=== PATIENT | male | born 1955 | race Hispanic/Latino ===

== ENCOUNTER 2018-03-02 20:30 | Inpatient (IN) | payer MEDICAID ==
[2018-03-02 20:35] VITALS: BMI 27.1
[2018-03-02] MEDS ORDERED: Sodium Chloride 0.9% 1,000 ML IV SCH (21:00)
[2018-03-02 21:05] LABS: BASO # 0.07 K/mm3 (0.0-2.0); BASO % 0.5 % (0.0-3.0); EOS # 0.1 (0.0-0.7); EOS % 0.8 % (1.5-5.0); GRAN # 10.86 (1.4-6.5); GRAN % 78.3 % (50.0-68.0); HEMOGLOBIN 8.7 g/dL (14.0-18.0); LYMPH # 2.3 (1.2-3.4); LYMPH % 16.4 % (22.0-35.0); MEAN CELL VOLUME 85.8 fl (80.0-105.0); MEAN CORPUSCULAR HEMOGLOBIN 28.8 pg (25.0-35.0); MEAN CORPUSCULAR HGB CONC 33.6 g/dl (31.0-37.0); MEAN PLATELET VOLUME 9.4 fl (7.0-11.0); MONO # 0.6 (0.1-0.6); RBC 3.02 10^6/uL (3.5-6.1); RED CELL DISTRIBUTION WIDTH 13.5 % (11.5-14.5); WHITE BLOOD COUNT 13.9 10^3/ul (4.5-11.0)
[2018-03-02 21:17] LABS: ALB/GLOB RATIO 1.4 (1.1-1.8); ALBUMIN 3.3 g/dL (3.0-4.8); ALT/SGPT 25 U/L (7-56); AMYLASE 37 U/L (35-125); AST/SGOT 17 U/L (17-59); BLOOD UREA NITROGEN 38 mg/dL (7-21); CALCIUM 8.6 mg/dL (8.4-10.5); GFR AFRICAN-AMERICAN > 60; GFR NON-AFRICAN AMERICAN > 60; LIPASE 44 U/L (23-300)
[2018-03-02 21:21] LABS: INR 1.2 (0.93-1.08); PARTIAL THROMBOPLASTIN TIME 24.8 Seconds (25.1-36.5); PROTHROMBIN TIME 13.7 SECONDS (9.4-12.5)
[2018-03-02 21:26] LABS: TROPONIN I < 0.01 ng/mL
--- NOTE | 2018-03-02 21:40 | ED PDOC ---
Arrival/HPI - General Chief Complaint: Dizziness/Lightheaded Time Seen by Provider: 03/02/18 20:33 Historian: Patient - History of Present Illness Narrative History of Present Illness (Text): 03/02/18 20:45 Jennifer Delaney is a 62 year old male who presents to the Emergency department complaining of generalized weakness. Patient reports associated dizziness and black stools since yesterday. Patient notes he takes aspirin daily. Patient denies any fever, chills, chest pain, shortness of breath, nausea, vomiting, diarrhea, urinary symptoms, back pain, neck pain, headache, vision changes, or any other complaints. Time/Duration: 24 hours Symptom Onset: Gradual Symptom Course: Unchanged Activities at Onset: Light Context: Home Past Medical History - Provider Review Nursing Documentation Reviewed: Yes - Psychiatric Hx Substance Use: No Family/Social History - Physician Review Nursing Documentation Reviewed: Yes Family/Social History: Unknown Family HX Smoking Status: Current Some Days Smoker Hx Alcohol Use: Yes Frequency of alcohol use: Socially Hx Substance Use: No Allergies/Home Meds Allergies/Adverse Reactions: Allergies No Known Allergies Allergy (Verified 03/02/18 20:35) Home Medications: Home Meds Medication Instructions Recorded Confirmed Aspirin [Aspirin EC] 325 mg PO DAILY 03/02/18 03/02/18 Review of Systems - Physician Review All systems were reviewed & negative as marked: Yes - Review of Systems Constitutional: Other (+generalized weakness). absent: Fevers Eyes: Normal ENT: Normal Respiratory: Normal. absent: SOB, Cough Cardiovascular: Normal. absent: Chest Pain Gastrointestinal: Stool Changes (+black stools). absent: Diarrhea, Vomiting Genitourinary Male: Normal. absent: Dysuria, Frequency, Hematuria, Urinary Output Changes Musculoskeletal: Normal. absent: Back Pain, Neck Pain Skin: Normal. absent: Rash Neurological: Dizziness. absent: Headache Endocrine: Normal Hemo/Lymphatic: Normal Psychiatric: Normal Physical Exam Vital Signs Reviewed: Yes Vital Signs Temp Pulse Resp BP Pulse Ox 03/03/18 01:05 98.2 F 83 18 117/52 L 03/03/18 00:40 99.2 F 89 16 142/75 03/02/18 23:47 99.2 F 91 H 18 146/82 03/02/18 23:37 98.4 F 98 H 20 148/78 03/02/18 23:02 98.0 F 90 18 134/75 03/02/18 22:47 98 F 86 20 133/71 03/02/18 20:31 98 F 93 H 18 140/74 99 Temperature: Afebrile Blood Pressure: Normal Pulse: Regular Respiratory Rate: Normal Appearance: Positive for: Well-Appearing, Non-Toxic, Comfortable Pain Distress: None Mental Status: Positive for: Alert and Oriented X 3 - Systems Exam Head: Present: Atraumatic, Normocephalic Pupils: Present: PERRL Extroacular Muscles: Present: EOMI Conjunctiva: Present: Normal Mouth: Present: Moist Mucous Membranes Neck: Present: Normal Range of Motion Respiratory/Chest: Present: Clear to Auscultation, Good Air Exchange. No: Respiratory Distress, Accessory Muscle Use Cardiovascular: Present: Regular Rate and Rhythm, Normal S1, S2. No: Murmurs Abdomen: No: Tenderness, Distention, Peritoneal Signs Back: Present: Normal Inspection Upper Extremity: Present: Normal Inspection. No: Cyanosis, Edema Lower Extremity: Present: Normal Inspection. No: Edema Neurological: Present: GCS=15, CN II-XII Intact, Speech Normal Skin: Present: Warm, Dry, Normal Color. No: Rashes Psychiatric: Present: Alert, Oriented x 3, Normal Insight, Normal Concentration Medical Decision Making ED Course and Treatment: 03/02/18 20:45 Impression: 62 year old male complaining of dizziness, generalized weakness, and black stools since yesterday. Plan: -- EKG -- Chest X-ray -- Labs, blood type and screen, cardiac enzymes, amylase, lipase -- IV fluids -- Protonix -- Reassess and disposition Progress Notes: Reviewed EKG, NSR at 88 bpm. Non-specific ST/T wave changes. 03/02/18 21:20 Chest X-ray reviewed, shows no acute processes. 03/02/18 21:46 Case discussed with medical record specialist garment alteration examiner, who is aware and agrees with plan. 03/02/18 21:[address] Velasquez, who is aware and agrees with plan. Accepts pt in to hospitalist service. Pt will be admitted to Telemetry for GI bleed. - Lab Interpretations Lab Results: 03/02/18 20:49 03/02/18 20:49 Lab Results 03/02/18 21:06: Blood Type O POSITIVE, Antibody Screen Negative, Crossmatch See Detail, BBK History Checked No verified bt 03/02/18 21:00: Blood Type Confirm O POSITIVE 03/02/18 20:49: TSH 3rd Generation 1.47, Alcohol, Quantitative < 10 03/02/18 20:49: Ferritin 71.1, Vitamin B12 255, Folate 6.3 03/02/18 20:49: Iron 156, TIBC 318, % Saturation 49 03/02/18 20:49: Differential Comment See pathology report, Retic Count 1.76 H 03/02/18 20:49: Sodium 139, Potassium 3.9, Chloride 104, Carbon Dioxide 27, Anion Gap 12, BUN 38 H, Creatinine 0.9, Est GFR ( Amer) > 60, Est GFR ( Non-Af Amer) > 60, Random Glucose 166 H, Calcium 8.6, Total Bilirubin 0.1 L, AST 17, ALT 25, Alkaline Phosphatase 43, Lactate Dehydrogenase 269 L, Total Creatine Kinase 33 L, Troponin I < 0.01, Total Protein 5.7 L, Albumin 3.3, Globulin 2.4, Albumin/Globulin Ratio 1.4, Amylase 37, Lipase 44 03/02/18 20:49: PT 13.7 H, INR 1.20 H, APTT 24.8 L 03/02/18 20:49: WBC 13.9 H, RBC 3.02 L, Hgb 8.7 L, Hct 25.9 L, MCV 85.8, MCH 28.8, MCHC 33.6, RDW 13.5, Plt Count 262, MPV 9.4, Gran % 78.3 H, Lymph % (Auto ) 16.4 L, [place] % (Auto) 4.0, Eos % (Auto) 0.8 L, Baso % (Auto) 0.5, Gran # 10.86 H, Lymph # (Auto) 2.3, [place] # (Auto) 0.6, Eos # (Auto) 0.1, Baso # (Auto) 0.07 I have reviewed the lab results: Yes - RAD Interpretation Radiology Orders: 03/02/18 20:48 CHEST PORTABLE [RAD] Stat Rope Laying Machine Operator: ED Physician - EKG Interpretation Interpreted by ED Physician: Yes Type: 12 lead EKG - Medication Orders Current Medication Orders: Pantoprazole Sodium (Protonix 40mg Ivpb) 40 mg in 100 mls @ 20 mls/hr IVPB .Q5H [facility] Last Admin: 03/04/18 03:30 Dose: 20 mls/hr eMAR Start Stop Document 03/04/18 03:30 KOPPS (Rec: 03/04/18 03:30 KOPPS [id number]) Intravenous Solution Start Date 03/04/18 Start Time 03:30 Sodium Chloride (Sodium Chloride 0.9%) 1,000 mls @ 100 mls/hr IV .Q10H [facility] Last Admin: 03/04/18 04:01 Dose: Discontinued Medications Sodium Chloride (Sodium Chloride 0.9%) 1,000 mls @ 80 mls/hr IV .[id number] [facility] Last Admin: 03/02/18 20:58 Dose: 80 mls/hr eMAR Start Stop Document 03/02/18 20:58 RG (Rec: 03/02/18 20:58 RG [id number]) Intravenous Solution Start Date 03/02/18 Start Time 20:58 Sodium Chloride (Sodium Chloride 0.9%) 1,000 mls @ 125 mls/hr IV .Q8H [facility] Last Admin: 03/03/18 05:28 Dose: Sodium Chloride (Sodium Chloride 0.9%) 1,000 mls @ 100 mls/hr IV .Q10H [facility] Pantoprazole Sodium (Protonix Inj) 40 mg IVP ONCE STA Stop: 03/02/18 20:50 Last Admin: 03/02/18 20:54 Dose: 40 mg IVP Administration Document 03/02/18 20:54 RG (Rec: 03/02/18 20:56 RG [id number]) Charges for Administration # of IVP Administrations 1 Pantoprazole Sodium (Protonix Inj) 40 mg IVP STAT STA Stop: 03/03/18 01:49 Last Admin: 03/03/18 02:33 Dose: 40 mg IVP Administration Document 03/03/18 02:33 ST (Rec: 03/03/18 02:33 ST [id number]) Charges for Administration # of IVP Administrations 1 - Scribe Statement The provider has reviewed the documentation as recorded by the Scribdavid Bautista Provider Scribe Attestation: All medical record entries made by the Scribe were at my direction and personally dictated by me. I have reviewed the chart and agree that the record accurately reflects my personal performance of the history, physical exam, medical decision making, and the department course for this patient. I have also personally directed, reviewed, and agree with the discharge instructions and disposition. Disposition/Present on Arrival - Present on Arrival Any Indicators Present on Arrival: No History of DVT/PE: No History of Uncontrolled Diabetes: No Urinary Catheter: No History of Decub. Ulcer: No History Surgical Site Infection Following: None - Disposition Have Diagnosis and Disposition been Completed?: Yes Diagnosis: Gastrointestinal bleeding Disposition: HOSPITALIZED Disposition Time: 22:00 Condition: FAIR
--- NOTE | 2018-03-02 22:50 | CP.PCM.HP ---
History of Present Illness - History of Present Illness History of Present Illness: Joan Reza, PGY1, H&P for Dr Velasquez: CC: dizziness, black tarry stools for past 3 days 62 year old male with no significant PMH, presents for dizziness and fatigue for past 2-3 days. Pt state that he started having black tarry stools, 2 formed stools/day, for past 2-3 days. Denies nausea, vomiting, hematemesis, cp, palpitations, sob, syncope, LOC, diarrhea, constipation, hematochezia, hematuria , urinary symptoms, leg swelling. Pt reports decreased appetite. No prior such episodes before. Pt states that he had mild congestion for past few days and has been taking Mucinex and ASA 325 mg. Otherwise, denies chronic NSAID use, history of GERD, dyspepsia, constipation. No prior EGD. Prior colonoscopy 3 years ago, which showed polyps. Pt is due for a colonoscopy next year. In ED, pt HR in 90s, other vitals stable. Hgb 8.7, wbc 13.9, BUN 38, Cr 0.9, LDH 269, norml amylase/lipase. Given Protonix 40 IV and started on IVF. Pt being transfused 2 units prbcs as per ED. 12 point ROS obtained and negative, except as per HPI. PMD: [facility]: in [facility] (does not remember name) PMH: denies PSH: denies NKA FH: denies SH: drinks ETOH socially - whiskey or wine. some days smoker - 5-6 ciggs/day for 25 years. Home meds: denies Present on Admission - Present on Admission Any Indicators Present on Admission: No History of DVT/PE: No History of Uncontrolled Diabetes: No Urinary Catheter: No Decubitus Ulcer Present: No Review of Systems - Review of Systems All systems: reviewed and no additional remarkable complaints except Review of Systems: as per HPI Past Patient History - Past Social History Smoking Status: Current Some Days Smoker - PSYCHIATRIC Hx Substance Use: No Meds Allergies/Adverse Reactions: Allergies Allergy/AdvReac Type Severity Reaction Status Date / Time No Known Allergies Allergy Verified 03/02/18 20:35 Physical Exam - Constitutional Appears: Non-toxic, No Acute Distress - Head Exam Head Exam: ATRAUMATIC, NORMOCEPHALIC - Eye Exam Eye Exam: EOMI, PERRL. absent: Conjunctival injection, Nystagmus, Scleral icterus Pupil Exam: NORMAL ACCOMODATION, PERRL. absent: Fixed, Irregular, Unequal Additional comments: mild conjunctival pallor - ENT Exam ENT Exam: Mucous Membranes Moist - Neck Exam Neck exam: Positive for: Full Rom - Respiratory Exam Respiratory Exam: Clear to Auscultation Bilateral, NORMAL BREATHING PATTERN. absent: Accessory Muscle Use, Rhonchi, Wheezes, Stridor - Cardiovascular Exam Cardiovascular Exam: RRR, +S1, +S2. absent: Systolic Murmur - GI/Abdominal Exam GI & Abdominal Exam: Normal Bowel Sounds, Soft. absent: Distended, Firm, Guarding, Mass, Organomegaly, Rebound, Rigid, Tenderness - Rectal Exam Rectal Exam: Black Stool. absent: Hemorrhoids, Fecal Impaction Additional comments: Rectal exam showed black stool, + FOBT, normal anal sphincter tone. no hemorrhoids/anal fissure/mass appreciated. - Extremities Exam Extremities exam: Positive for: normal inspection. Negative for: calf tenderness, pedal edema - Back Exam Back exam: NORMAL INSPECTION - Neurological Exam Neurological exam: Alert, Oriented x3 - Psychiatric Exam Psychiatric exam: Normal Affect, Normal Mood - Skin Skin Exam: Dry, Pallor, Warm Results - Vital Signs Recent Vital Signs: Last Vital Signs Temp 98 F 03/02/18 22:47 Pulse 86 03/02/18 22:47 Resp 20 03/02/18 22:47 BP 133/71 03/02/18 22:47 Pulse Ox 99 03/02/18 20:31 - Labs Result Diagrams: 03/02/18 20:49 03/02/18 20:49 Assessment & Plan - Assessment and Plan (Free Text) Assessment: 62 year old male with no PMH, presents for dizziness, found to be anemic likely 2/2 upper GI bleed: Dizziness and generalized weakness: 2/2 anemia from upper GI bleed vs dehydration vs thyroid abnormalities - Hgb 8.7 - EKG, NSR at 88 bpm. Non-specific ST/T wave changes. - Chest X-ray reviewed, shows no acute processes. - Rectal exam showed black stool, + FOBT, normal anal sphincter tone. no hemorrhoids/anal fissure/mass appreciated. - NPO - Monitor Hgb q4h - F/u iron/anemia studies. Peripheral smear - NGT to low intermittent suction - Protonix 80 mg IV x1 given, then started on drip at 8 mg/hr - Gi consult. F/u recs. - Type and screen/crossmatch. Pt being transfused 2 units prbcs as per ED - Tele monitoring - IV access: 2 large bore IVs - NS @ 100 - Bed rest - Fall precautions - Cont to monitor - Avoid anticoag, NSAIDs, ASA, steroids PPX: protonix. SCDs Discussed with Dr Velasquez. - Date & Time Date: 03/03/18 Time: 01:24
[2018-03-03] MEDS ORDERED: Sodium Chloride 0.9% 1,000 ML IV SCH ×2 (00:33→00:37)
[2018-03-03] MEDS: Pantoprazole 40mg/100mL NS 40 MG/100 ML BAG IVPB SCH ×5 (02:33→21:53)
[2018-03-03 03:19] LABS: IRON 156 ug/dL (45-180)
[2018-03-03 03:28] LABS: % IRON SATURATION 49 % (20-55); TOTAL IRON BINDING CAPACITY 318 ug/dL (261-462)
--- NOTE | 2018-03-03 09:18 | RAD ---
HISTORY: GI BLEED COMPARISON: No prior. FINDINGS: LUNGS: No active pulmonary disease. PLEURA: No significant pleural effusion identified, no pneumothorax apparent. CARDIOVASCULAR: No radiographic findings to suggest acute or significant cardiovascular disease. OSSEOUS STRUCTURES: No significant abnormalities. VISUALIZED UPPER ABDOMEN: Normal. OTHER FINDINGS: None. IMPRESSION: No active disease.
[2018-03-03 10:12] LABS: BASO # 0.06 K/mm3 (0.0-2.0); BASO % 0.4 % (0.0-3.0); EOS # 0.2 (0.0-0.7); EOS % 1.4 % (1.5-5.0); GRAN # 10.13 (1.4-6.5); HEMOGLOBIN 9.3 g/dL (14.0-18.0); LYMPH # 3.3 (1.2-3.4); LYMPH % 22.3 % (22.0-35.0); MEAN CORPUSCULAR HEMOGLOBIN 29.7 pg (25.0-35.0); MEAN PLATELET VOLUME 9.3 fl (7.0-11.0); MONO % 6.9 % (1.0-6.0); RBC 3.13 10^6/uL (3.5-6.1); RED CELL DISTRIBUTION WIDTH 13.7 % (11.5-14.5); WHITE BLOOD COUNT 14.7 10^3/ul (4.5-11.0)
[2018-03-03 10:27] LABS: ALB/GLOB RATIO 1.3 (1.1-1.8); ALBUMIN 3.1 g/dL (3.0-4.8); ALT/SGPT 27 U/L (7-56); AST/SGOT 18 U/L (17-59); BLOOD UREA NITROGEN 25 mg/dL (7-21); CALCIUM 8.7 mg/dL (8.4-10.5); GFR AFRICAN-AMERICAN > 60; GFR NON-AFRICAN AMERICAN > 60
--- NOTE | 2018-03-03 11:21 | CARD ---
APPROVED REPORT EKG Measurement Heart [id number] <Conclusion> Normal sinus rhythm Nonspecific T wave abnormality Abnormal ECG
[2018-03-03 13:08] LABS: FERRITIN 71.1 ng/mL
--- NOTE | 2018-03-03 13:33 | CP.PCM.CON ---
<Brinda Ulloa - Last Filed: 03/03/18 13:33> History of Present Illness - History of Present Illness History of Present Illness: Seen and examined at the bedside earlier today, chart was reviewed. Request for GI consult is for GI bleed. HPI: This is a 62-year-old female with no significant past medical history complaining of black tarry stools for the past 2 days, he also complained of feeling dizziness and fatigue. The patient reported having tarry stools 2 on Thursday as well as an episode on Thursday. Denies any bright red blood. No complaint of nausea, vomiting, dyspepsia or abdominal pain. His is currently at the bedside and endorses that the patient is recently had a fever for flu. He denies any weight loss or loss of appetite. He normally has regular bowel movements daily and has never noticed any melena or bright red blood per rectum. On occasion he may take aspirin for headaches but not on a regular basis. He denies any chronic use of NSAIDs. Never had endoscopy, last colonoscopy was 3 years ago at [facility] with Dr. huggins on with a history of colon polyps. On admission he was found to have a hemoglobin of 8.7, he is status post 2 units of packed RBCs. Past medical history: As per HPI denies any cardiac, pulmonary, endocrine illnesses. Past surgical history denies Allergies: No known drug allergies Family history: Denies Social history: History of smoking, drinks alcohol socially usually on weekends about 2 drinks denies any illicit drugs Medications: Reviewed as per MAR ROS: Systems reviewed a positive findings see HPI. Past Patient History - Past Social History Smoking Status: Light Smoker < 10 Cigarettes Daily - CARDIAC Hx Cardiac Disorders: No - PULMONARY Hx Respiratory Disorders: No - NEUROLOGICAL Hx Neurological Disorder: No - HEENT Hx HEENT Problems: No - RENAL Hx Chronic Kidney Disease: No - ENDOCRINE/METABOLIC Hx Endocrine Disorders: No - HEMATOLOGICAL/ONCOLOGICAL Hx Blood Disorders: No - INTEGUMENTARY Hx Dermatological Problems: No - MUSCULOSKELETAL/RHEUMATOLOGICAL Hx Musculoskeletal Disorders: No Hx Falls: No - GASTROINTESTINAL Hx Gastrointestinal Disorders: No - GENITOURINARY/GYNECOLOGICAL Hx Genitourinary Disorders: No - PSYCHIATRIC Hx Psychophysiologic Disorder: No Meds Allergies/Adverse Reactions: Allergies Allergy/AdvReac Type Severity Reaction Status Date / Time No Known Allergies Allergy Verified 03/02/18 20:35 - Medications Medications: Current Medications Sodium Chloride (Sodium Chloride 0.9%) 1,000 mls @ 100 mls/hr IV .Q10H [facility] Pantoprazole Sodium (Protonix 40mg Ivpb) 40 mg in 100 mls @ 20 mls/hr IVPB .Q5H [facility] Last Admin: 03/03/18 11:56 Dose: 20 mls/hr Physical Exam - Constitutional Appears: No Acute Distress - Head Exam Head Exam: NORMOCEPHALIC - Eye Exam Eye Exam: Normal appearance. absent: Scleral icterus Pupil Exam: NORMAL ACCOMODATION - ENT Exam ENT Exam: Mucous Membranes Moist - Neck Exam Neck exam: Positive for: Normal Inspection - Respiratory Exam Respiratory Exam: NORMAL BREATHING PATTERN. absent: Respiratory Distress - Cardiovascular Exam Cardiovascular Exam: +S1, +S2 - GI/Abdominal Exam GI & Abdominal Exam: Normal Bowel Sounds, Soft. absent: Distended, Guarding, Rebound, Tenderness - Rectal Exam Rectal Exam: Black Stool Additional comments: no mass palpated - Extremities Exam Extremities exam: Positive for: pedal pulses present. Negative for: calf tenderness, pedal edema (5) - Neurological Exam Neurological exam: Alert, Oriented x3 - Skin Skin Exam: Dry, Warm Results - Vital Signs Recent Vital Signs: Last Vital Signs Temp 98.1 F 03/03/18 12:00 Pulse 86 03/03/18 12:00 Resp 20 03/03/18 12:00 BP 131/66 03/03/18 12:00 Pulse Ox 99 03/02/18 20:31 - Labs Result Diagrams: 03/03/18 10:00 03/03/18 10:00 Labs: Laboratory Results - last 24 hr 03/03/18 03/03/18 10:00 10:00 WBC 14.7 H RBC 3.13 L Hgb 9.3 L Hct 26.6 L MCV 85.0 MCH 29.7 MCHC 35.0 RDW 13.7 Plt Count 207 MPV 9.3 Gran % 69.0 H Lymph % (Auto) 22.3 [place] % (Auto) 6.9 H Eos % (Auto) 1.4 L Baso % (Auto) 0.4 Gran # 10.13 H Lymph # (Auto) 3.3 [place] # (Auto) 1.0 H Eos # (Auto) 0.2 Baso # (Auto) 0.06 Sodium 140 Potassium 4.0 Chloride 107 Carbon Dioxide 27 Anion Gap 11 BUN 25 H Creatinine 0.7 L Est GFR ( Amer) > 60 Est GFR (Non-Af Amer) > 60 Random Glucose 104 Calcium 8.7 Total Bilirubin 0.2 AST 18 ALT 27 Alkaline Phosphatase 37 L Total Protein 5.4 L Albumin 3.1 Globulin 2.3 Albumin/Globulin Ratio 1.3 Assessment & Plan - Assessment and Plan (Free Text) Assessment: Assessment: GI bleed, tarry stools, differentials to consider is peptic ulcer disease, varices Anemia secondary to GI bleed status post 2 units of packed RBC History of colon polyp Plan: Nothing by mouth, continue IV for hydration Currently on Protonix drip Monitor H&H and for overt GI bleed Discussed with patient and at bedside plan for upper endoscopy this afternoon. Thank you for allowing us to participate in your patient's care, further recommendations based upon clinical course. Seen and discussed with Dr. Flannery. <Vee Flannery V - Last Filed: 03/03/18 21:49> Meds - Medications Medications: Current Medications Pantoprazole Sodium (Protonix 40mg Ivpb) 40 mg in 100 mls @ 20 mls/hr IVPB .Q5H [facility] Last Admin: 03/03/18 17:56 Dose: 20 mls/hr Sodium Chloride (Sodium Chloride 0.9%) 1,000 mls @ 100 mls/hr IV .Q10H [facility] Last Admin: 03/03/18 17:57 Dose: 100 mls/hr Results - Vital Signs Recent Vital Signs: Last Vital Signs Temp 97.9 F 03/03/18 17:54 Pulse 86 03/03/18 18:00 Resp 18 03/03/18 17:54 BP 123/70 03/03/18 17:54 Pulse Ox 99 03/03/18 15:15 - Labs Result Diagrams: 03/03/18 18:00 03/03/18 10:00 Labs: Laboratory Results - last 24 hr 03/03/18 03/03/18 03/03/18 10:00 10:00 18:00 WBC 14.7 H RBC 3.13 L Hgb 9.3 L 8.7 L Hct 26.6 L 25.4 L MCV 85.0 MCH 29.7 MCHC 35.0 RDW 13.7 Plt Count 207 MPV 9.3 Gran % 69.0 H Lymph % (Auto) 22.3 [place] % (Auto) 6.9 H Eos % (Auto) 1.4 L Baso % (Auto) 0.4 Gran # 10.13 H Lymph # (Auto) 3.3 [place] # (Auto) 1.0 H Eos # (Auto) 0.2 Baso # (Auto) 0.06 Sodium 140 Potassium 4.0 Chloride 107 Carbon Dioxide 27 Anion Gap 11 BUN 25 H Creatinine 0.7 L Est GFR ( Amer) > 60 Est GFR (Non-Af Amer) > 60 Random Glucose 104 Calcium 8.7 Total Bilirubin 0.2 AST 18 ALT 27 Alkaline Phosphatase 37 L Total Protein 5.4 L Albumin 3.1 Globulin 2.3 Albumin/Globulin Ratio 1.3 Attending/Attestation - Attestation I have personally seen and examined this patient.: Yes I have fully participated in the care of the patient.: Yes I have reviewed all pertinent clinical information: Yes Notes (Text): This is an addendum to GI consult report dictated by Brinda Ulloa APN.The patient was seen and examined earlier. Medical records, lab studies, imagings were reviewed. Last 24 hours events reviewed. Agreed with the above treatment plan as outlined in Brinda Ulloa APN's notes the with the addition of the following patient did receive 2 units of PRBC. The level did not rise appropriately and this could be either due continued bleeding on hemodilution history of NSAID use Would benefit from EGD Risk benefits alternatives explained and informed consent was obtained 03/03/18 21:46
[2018-03-03 13:38] LABS: FOLATE 6.3 ng/mL
[2018-03-03] MEDS ORDERED: Propofol 10 mg/ml Inj (20 ML) ONE (13:57)
[2018-03-03] MEDS: Sodium Chloride 0.9% 1,000 ML IV SCH (17:57)
[2018-03-03 18:10] LABS: HEMOGLOBIN 8.7 g/dL (14.0-18.0)
[2018-03-04] MEDS: Pantoprazole 40mg/100mL NS 40 MG/100 ML BAG IVPB SCH ×3 (03:30→14:17)
[2018-03-04] MEDS: Sodium Chloride 0.9% 1,000 ML IV SCH ×2 (04:01→06:14)
[2018-03-04 06:39] LABS: BASO # 0.07 K/mm3 (0.0-2.0); BASO % 0.8 % (0.0-3.0); EOS # 0.4 (0.0-0.7); EOS % 3.9 % (1.5-5.0); GRAN # 5.55 (1.4-6.5); GRAN % 61.3 % (50.0-68.0); HEMOGLOBIN 8.1 g/dL (14.0-18.0); LYMPH # 2.5 (1.2-3.4); LYMPH % 27.9 % (22.0-35.0); MEAN CELL VOLUME 86.3 fl (80.0-105.0); MEAN CORPUSCULAR HEMOGLOBIN 29.2 pg (25.0-35.0); MEAN CORPUSCULAR HGB CONC 33.9 g/dl (31.0-37.0); MEAN PLATELET VOLUME 9.4 fl (7.0-11.0); MONO # 0.6 (0.1-0.6); MONO % 6.1 % (1.0-6.0); RBC 2.77 10^6/uL (3.5-6.1); RED CELL DISTRIBUTION WIDTH 13.9 % (11.5-14.5)
[2018-03-04 06:58] LABS: ALB/GLOB RATIO 1.2 (1.1-1.8); ALBUMIN 2.8 g/dL (3.0-4.8); ALT/SGPT 28 U/L (7-56); AST/SGOT 20 U/L (17-59); BLOOD UREA NITROGEN 20 mg/dL (7-21); CALCIUM 8.5 mg/dL (8.4-10.5); GFR AFRICAN-AMERICAN > 60; GFR NON-AFRICAN AMERICAN > 60
[2018-03-04 07:18] LABS: INR 1.16 (0.93-1.08); PARTIAL THROMBOPLASTIN TIME 29.7 Seconds (25.1-36.5); PROTHROMBIN TIME 13.4 SECONDS (9.4-12.5)
[2018-03-04 10:07] LABS: HEMOGLOBIN 7.9 g/dL (14.0-18.0)
[2018-03-04] MEDS ORDERED: Barium Sulfate Susp 2.1% w/v, 2.0% w/w 450 mL Bottle PO ONE (10:33)
[2018-03-04 11:39] VITALS: O2SAT 96
[2018-03-04 12:02] VITALS: RESP 20
[2018-03-04] MEDS ORDERED: Iodixanol 320 MG/ML 100 ML BOTTLE IV ONE (13:27)
--- NOTE | 2018-03-04 15:42 | CT ---
PROCEDURE: CT Abdomen and Pelvis with contrast HISTORY: GIB/gastric ulcers COMPARISON: None. TECHNIQUE: Contrast dose: 100 cc of Omni 350 Radiation dose: Total exam DLP = 853 mGy-cm. This CT exam was performed using one or more of the following dose reduction techniques: Automated exposure control, adjustment of the mA and/or kV according to patient size, and/or use of iterative reconstruction technique. FINDINGS: LOWER THORAX: Unremarkable. LIVER: Unremarkable. No gross lesion or ductal dilatation. GALLBLADDER AND BILE DUCTS: Unremarkable. PANCREAS: Unremarkable. No gross lesion or ductal dilatation. SPLEEN: Unremarkable. ADRENALS: Unremarkable. No mass. KIDNEYS AND URETERS: Unremarkable. No hydronephrosis. No solid mass. VASCULATURE: Unremarkable. No aortic aneurysm. BOWEL: Unremarkable. No obstruction. No gross mural thickening. APPENDIX: Normal appendix. PERITONEUM: Unremarkable. No free fluid. No free air. LYMPH NODES: Unremarkable. No enlarged lymph nodes. BLADDER: Unremarkable. REPRODUCTIVE: Unremarkable. BONES: No acute fracture. OTHER FINDINGS: None. IMPRESSION: No acute findings
--- NOTE | 2018-03-04 16:12 | CP.PCM.DIS ---
<Dajuan Jon - Last Filed: 03/06/18 18:59> Provider - Provider Date of Admission: 03/02/18 21:57 Attending physician: [place]ia Holder MD Primary care physician: Nany Giron MD Consults: SURAJ Flannery Time Spent in preparation of Discharge (in minutes): 35 Hospital Course - Lab Results Lab Results: Most Recent Lab Values WBC 9.0 10^3/ul (4.5-11.0) D 03/04/18 05:30 RBC 2.77 10^6/uL (3.5-6.1) L 03/04/18 05:30 Hgb 7.9 g/dL (14.0-18.0) L 03/04/18 10:00 Hct 23.1 % (42.0-52.0) L 03/04/18 10:00 MCV 86.3 fl (80.0-105.0) 03/04/18 05:30 MCH 29.2 pg (25.0-35.0) 03/04/18 05:30 MCHC 33.9 g/dl (31.0-37.0) 03/04/18 05:30 RDW 13.9 % (11.5-14.5) 03/04/18 05:30 Plt Count 194 10^3/uL (120.0-450.0) 03/04/18 05:30 MPV 9.4 fl (7.0-11.0) 03/04/18 05:30 Gran % 61.3 % (50.0-68.0) 03/04/18 05:30 Lymph % (Auto) 27.9 % (22.0-35.0) 03/04/18 05:30 [place] % (Auto) 6.1 % (1.0-6.0) H 03/04/18 05:30 Eos % (Auto) 3.9 % (1.5-5.0) 03/04/18 05:30 Baso % (Auto) 0.8 % (0.0-3.0) 03/04/18 05:30 Gran # 5.55 (1.4-6.5) 03/04/18 05:30 Lymph # (Auto) 2.5 (1.2-3.4) 03/04/18 05:30 [place] # (Auto) 0.6 (0.1-0.6) 03/04/18 05:30 Eos # (Auto) 0.4 (0.0-0.7) 03/04/18 05:30 Baso # (Auto) 0.07 K/mm3 (0.0-2.0) 03/04/18 05:30 Differential Comment See pathology report 03/02/18 20:49 Retic Count 1.76 % (0.5-1.5) H 03/02/18 20:49 PT 13.4 SECONDS (9.4-12.5) H 03/04/18 05:30 INR 1.16 (0.93-1.08) H 03/04/18 05:30 APTT 29.7 Seconds (25.1-36.5) 03/04/18 05:30 Sodium 141 mmol/L (132-148) 03/04/18 05:30 Potassium 3.6 mmol/L (3.6-5.0) 03/04/18 05:30 Chloride 107 mmol/L (98-107) 03/04/18 05:30 Carbon Dioxide 27 mmol/L (21-33) 03/04/18 05:30 Anion Gap 10 (10-20) 03/04/18 05:30 BUN 20 mg/dL (7-21) 03/04/18 05:30 Creatinine 0.8 mg/dl (0.8-1.5) 03/04/18 05:30 Est GFR ( Amer) > 60 03/04/18 05:30 Est GFR (Non-Af Amer) > 60 03/04/18 05:30 Random Glucose 88 mg/dL (70-110) 03/04/18 05:30 Calcium 8.5 mg/dL (8.4-10.5) 03/04/18 05:30 Iron 156 ug/dL (45-180) 03/02/18 20:49 TIBC 318 ug/dL (261-462) 03/02/18 20:49 % Saturation 49 % (20-55) 03/02/18 20:49 Ferritin 71.1 ng/mL 03/02/18 20:49 Total Bilirubin 0.2 mg/dL (0.2-1.3) 03/04/18 05:30 AST 20 U/L (17-59) 03/04/18 05:30 ALT 28 U/L (7-56) 03/04/18 05:30 Alkaline Phosphatase 38 U/L (38-126) 03/04/18 05:30 Lactate Dehydrogenase 269 U/L (333-699) L 03/02/18 20:49 Total Creatine Kinase 33 U/L (35-230) L 03/02/18 20:49 Troponin I < 0.01 ng/mL 03/02/18 20:49 Total Protein 5.0 g/dL (5.8-8.3) L 03/04/18 05:30 Albumin 2.8 g/dL (3.0-4.8) L 03/04/18 05:30 Globulin 2.3 gm/dL 03/04/18 05:30 Albumin/Globulin Ratio 1.2 (1.1-1.8) 03/04/18 05:30 Amylase 37 U/L (35-125) 03/02/18 20:49 Lipase 44 U/L (23-300) 03/02/18 20:49 Vitamin B12 255 pg/mL (239-931) 03/02/18 20:49 Folate 6.3 ng/mL 03/02/18 20:49 TSH 3rd Generation 1.47 mIU/mL (0.46-4.68) 03/02/18 20:49 Alcohol, Quantitative < 10 mg/dL (0-10) 03/02/18 20:49 Blood Type O POSITIVE 03/02/18 21:06 Blood Type Confirm O POSITIVE 03/02/18 21:00 Antibody Screen Negative 03/02/18 21:06 Crossmatch See Detail 03/02/18 21:06 BBK History Checked No verified bt 03/02/18 21:06 - Hospital Course Hospital Course: 62 year old male with no significant PMH, presented for dizziness and fatigue for past 2-3 days. Pt state that he started having black tarry stools, 2 formed stools/day, for past 2-3 days. Patient denied chronic NSAID use but admitted to taking Mucinex and ASA 325 for mild congestion. In ED, pt HR in 90s, other vitals stable. Hgb 8.7, wbc 13.9, BUN 38, Cr 0.9, LDH 269, norml amylase/ lipase. Given Protonix 40 IV and started on IVF. Pt being transfused 2 units prbcs as per ED. Patient was admitted for evaluation and treatment of upper GI bleed. GI was consulted on the case. EGD was done which showed multiple small gastric ulcers and one larger 1cm ulcer. Biopsy was taken of the ulcer. HgB remained stable. Patient started on 40mg Protonix BID for the first two weeks post discharge and Protonix 40 QAM and Zantac 150 HS to begin the beginning the 3rd week post discharge. He is to follow up with his PMD and GI physician. Importance of follow-up was reinforced to retrieve biopsy results and for repeat endsocopy in 8 weeks. Patient understands and is agreeable to plan and medications. Patient discussed with Attending Dajuan Jon, PGY-1 Discharge Exam - Additional Findings Additional findings: - Constitutional Appears: No Acute Distress - Head Exam Head Exam: NORMOCEPHALIC - Eye Exam Eye Exam: Normal appearance. absent: Scleral icterus - ENT Exam ENT Exam: Mucous Membranes Moist - Respiratory Exam Respiratory Exam: NORMAL BREATHING PATTERN. absent: Respiratory Distress - Cardiovascular Exam Cardiovascular Exam: +S1, +S2 - GI/Abdominal Exam GI & Abdominal Exam: Soft, Normal Bowel Sounds. absent: Guarding, Tenderness, Organomegaly, Rebound - Extremities Exam Extremities Exam: absent: Calf Tenderness, Pedal Edema - Neurological Exam Neurological Exam: Alert, Awake, Oriented x3 Discharge Plan - Discharge Medications Prescriptions: Pantoprazole [Protonix EC Tab] 40 mg PO BID 14 Days #28 ect Pantoprazole [Protonix] 40 mg PO QAM #14 ect Ranitidine HCl [Zantac] 150 mg PO HS #14 tablet - Follow Up Plan Condition: FAIR Disposition: HOME/ ROUTINE Instructions: Gastrointestinal Bleeding, Gastric Ulcer (DC), Quitting Smoking Additional Instructions: Discharge Instructions: Follow up with Alexia within 1 week of discharge. Follow a low residue, soft heart healthy diet. Consider smoking cessation as instructed. If symptoms occur persist or occur again, go to the nearest emergency room. Patient refused flu and pneumococcal vaccine. Referrals: Nany Hale MD [Primary Care Provider] - <Albania Holder - Last Filed: 03/07/18 14:15> Provider - Provider Date of Admission: 03/02/18 21:57 Attending physician: [place] Holder MD Primary care physician: Nany Giron MD Hospital Course - Lab Results Lab Results: Most Recent Lab Values WBC 9.0 10^3/ul (4.5-11.0) D 03/04/18 05:30 RBC 2.77 10^6/uL (3.5-6.1) L 03/04/18 05:30 Hgb 8.3 g/dL (14.0-18.0) L 03/04/18 16:50 Hct 24.0 % (42.0-52.0) L 03/04/18 16:50 MCV 86.3 fl (80.0-105.0) 03/04/18 05:30 MCH 29.2 pg (25.0-35.0) 03/04/18 05:30 MCHC 33.9 g/dl (31.0-37.0) 03/04/18 05:30 RDW 13.9 % (11.5-14.5) 03/04/18 05:30 Plt Count 194 10^3/uL (120.0-450.0) 03/04/18 05:30 MPV 9.4 fl (7.0-11.0) 03/04/18 05:30 Gran % 61.3 % (50.0-68.0) 03/04/18 05:30 Lymph % (Auto) 27.9 % (22.0-35.0) 03/04/18 05:30 [place] % (Auto) 6.1 % (1.0-6.0) H 03/04/18 05:30 Eos % (Auto) 3.9 % (1.5-5.0) 03/04/18 05:30 Baso % (Auto) 0.8 % (0.0-3.0) 03/04/18 05:30 Gran # 5.55 (1.4-6.5) 03/04/18 05:30 Lymph # (Auto) 2.5 (1.2-3.4) 03/04/18 05:30 [place] # (Auto) 0.6 (0.1-0.6) 03/04/18 05:30 Eos # (Auto) 0.4 (0.0-0.7) 03/04/18 05:30 Baso # (Auto) 0.07 K/mm3 (0.0-2.0) 03/04/18 05:30 Differential Comment See pathology report 03/02/18 20:49 Retic Count 1.76 % (0.5-1.5) H 03/02/18 20:49 PT 13.4 SECONDS (9.4-12.5) H 03/04/18 05:30 INR 1.16 (0.93-1.08) H 03/04/18 05:30 APTT 29.7 Seconds (25.1-36.5) 03/04/18 05:30 Sodium 141 mmol/L (132-148) 03/04/18 05:30 Potassium 3.6 mmol/L (3.6-5.0) 03/04/18 05:30 Chloride 107 mmol/L (98-107) 03/04/18 05:30 Carbon Dioxide 27 mmol/L (21-33) 03/04/18 05:30 Anion Gap 10 (10-20) 03/04/18 05:30 BUN 20 mg/dL (7-21) 03/04/18 05:30 Creatinine 0.8 mg/dl (0.8-1.5) 03/04/18 05:30 Est GFR ( Amer) > 60 03/04/18 05:30 Est GFR (Non-Af Amer) > 60 03/04/18 05:30 Random Glucose 88 mg/dL (70-110) 03/04/18 05:30 Calcium 8.5 mg/dL (8.4-10.5) 03/04/18 05:30 Iron 156 ug/dL (45-180) 03/02/18 20:49 TIBC 318 ug/dL (261-462) 03/02/18 20:49 % Saturation 49 % (20-55) 03/02/18 20:49 Ferritin 71.1 ng/mL 03/02/18 20:49 Total Bilirubin 0.2 mg/dL (0.2-1.3) 03/04/18 05:30 AST 20 U/L (17-59) 03/04/18 05:30 ALT 28 U/L (7-56) 03/04/18 05:30 Alkaline Phosphatase 38 U/L (38-126) 04/12/18 05:30 Lactate Dehydrogenase 269 U/L (333-699) L 03/02/18 20:49 Total Creatine Kinase 33 U/L (35-230) L 03/02/18 20:49 Troponin I < 0.01 ng/mL 03/02/18 20:49 Total Protein 5.0 g/dL (5.8-8.3) L 03/04/18 05:30 Albumin 2.8 g/dL (3.0-4.8) L 03/04/18 05:30 Globulin 2.3 gm/dL 03/04/18 05:30 Albumin/Globulin Ratio 1.2 (1.1-1.8) 03/04/18 05:30 Amylase 37 U/L (35-125) 03/02/18 20:49 Lipase 44 U/L (23-300) 03/02/18 20:49 Vitamin B12 255 pg/mL (239-931) 03/02/18 20:49 Folate 6.3 ng/mL 03/02/18 20:49 TSH 3rd Generation 1.47 mIU/mL (0.46-4.68) 03/02/18 20:49 Alcohol, Quantitative < 10 mg/dL (0-10) 03/02/18 20:49 Blood Type O POSITIVE 03/02/18 21:06 Blood Type Confirm O POSITIVE 03/02/18 21:00 Antibody Screen Negative 03/02/18 21:06 Crossmatch See Detail 03/02/18 21:06 BBK History Checked No verified bt 03/02/18 21:06 Attending/Attestation - Attestation I have personally seen and examined this patient.: Yes I have fully participated in the care of the patient.: Yes I have reviewed all pertinent clinical information, including history, physical exam and plan: Yes Notes (Text): I have seen and examined the patient at bedside. Agree with the above note dictated by the resident. Vitals, labs and imaging reviewed personally by me. Discussed the plan in detail with the patient. Discussed with Dr Flnanery who recommended to repeat endoscopy in 8 weeks. Recommend to start protonix and zantac. Upon discharge patient will follow up with Dr Villa. Dr Albania Holder
--- NOTE | 2018-03-04 16:32 | CP.PCM.PN ---
Subjective - Date & Time of Evaluation Date of Evaluation: 03/04/18 Time of Evaluation: 09:45 - Subjective Subjective: Seen and examined at the bedside earlier today, chart review. Patient status post endoscopy yesterday found to have 1 cm gastric ulcer and multiple gastric ulcers. Patient denies nausea, vomiting, or abdominal pain. No reports of overt GI bleed. Objective - Vital Signs/Intake and Output Vital Signs (last 24 hours): Temp Pulse Resp BP Pulse Ox 98.5 F 74 20 119/73 96 03/04/18 12:01 03/04/18 12:01 03/04/18 12:01 03/04/18 12:01 03/04/18 08:00 Intake and Output: 03/04/18 03/04/18 06:59 18:59 Intake Total 1860 720 Output Total 2 Balance 1858 720 - Medications Medications: Current Medications Pantoprazole Sodium (Protonix 40mg Ivpb) 40 mg in 100 mls @ 20 mls/hr IVPB .Q5H EVELYN Last Admin: 03/04/18 14:17 Dose: 20 mls/hr - Labs Labs: 03/04/18 10:00 03/04/18 05:30 PT 13.4 SECONDS (9.4-12.5) H 03/04/18 05:30 INR 1.16 (0.93-1.08) H 03/04/18 05:30 APTT 29.7 Seconds (25.1-36.5) 03/04/18 05:30 - Constitutional Appears: No Acute Distress - Head Exam Head Exam: NORMOCEPHALIC - Eye Exam Eye Exam: Normal appearance. absent: Scleral icterus - ENT Exam ENT Exam: Mucous Membranes Moist - Respiratory Exam Respiratory Exam: NORMAL BREATHING PATTERN. absent: Respiratory Distress - Cardiovascular Exam Cardiovascular Exam: +S1, +S2 - GI/Abdominal Exam GI & Abdominal Exam: Soft, Normal Bowel Sounds. absent: Guarding, Tenderness, Organomegaly, Rebound - Extremities Exam Extremities Exam: absent: Calf Tenderness, Pedal Edema - Neurological Exam Neurological Exam: Alert, Awake, Oriented x3 Assessment and Plan - Assessment and Plan (Free Text) Assessment: Assessment: GI bleed, status post endoscopy found to have 1 cm gastric ulcers Anemia secondary to GI bleed status post 2 units of packed RBC History of colon polyp Plan: recommend soft diet recommend Protonix twice a day 2 weeks then can take Protonix 40 mg daily with H2 сергей such as Zantac 150 in the evening. Request for CT scan of abdomen and pelvis with IV and oral contrast Monitor H&H and for overt GI bleed Patient will need repeat endoscopy in 8 weeks Case discussed with medical team. Seen and discussed with Dr. Flannery.
[2018-03-04 17:05] LABS: HEMOGLOBIN 8.3 g/dL (14.0-18.0)
[2018-03-04 18:02] VITALS: BP 114/64; PULSE 79; TEMP 98
== END 2018-03-04 19:05 | disposition home or self-care (01) | DRG 174 ==
LOC: ED 20:30 → ERH 21:57 → 2RNO 03-03 01:48
PROVIDERS: ADMIT Internal Medicine; ATTEND Hospitalist
PROC: 30233N1 Transfusion of Nonautologous Red Blood Cells into Peripheral Vein, Percutaneous Approach (ICD-10-PCS; 2018-03-02)
PROC: 0DB68ZX Excision of Stomach, Via Natural or Artificial Opening Endoscopic, Diagnostic (ICD-10-PCS; principal; 2018-03-03 15:45)
DX: K92.2 Gastrointestinal hemorrhage, unspecified (principal); E86.0 Dehydration; K25.9 Gastric ulcer, unspecified as acute or chronic, without hemorrhage or perforation; D50.0 Iron deficiency anemia secondary to blood loss (chronic); K29.50 Unspecified chronic gastritis without bleeding; B96.81 Helicobacter pylori [H. pylori] as the cause of diseases classified elsewhere; F17.210 Nicotine dependence, cigarettes, uncomplicated; Z86.010 Personal history of colon polyps; Z79.82 Long term (current) use of aspirin

== ENCOUNTER 2018-12-01 16:04 | Outpatient (CLI) | payer OTHER | END 2018-12-01 16:05 | disposition home or self-care (01) | LOC: RAD 16:04 ==